=== PATIENT | female | born 1950 | race Caucasian/White ===

== ENCOUNTER 2021-08-26 18:01 | Emergency (ER) | payer OTHER, MEDICARE ==
[2021-08-26 20:04] LABS: BASOPHIL 0.9 % (0-2); EOSINOPHIL 1.7 % (0-7); HCT 37.3 % (37.0-47.0); HGB 12.4 g/dl (12.5-16.0); LYMPHOCYTE 17.4 % (15-48); MCH 33.8 pg (25.0-31.0); MCHC 33.2 g/dL (32.0-36.0); MCV 101.6 fL (78.0-100.0); MONOCYTE 10.4 % (0-12); NEUTROPHIL 69.3 % (41-80); NRBC 0; PLT 146 K/uL (150-400); RBC 3.67 M/uL (4.20-5.40); RDW 13.3 % (11.5-14.0); WBC 6.9 K/uL (4.0-10.5)
[2021-08-26 20:20] LABS: BUN/CREAT RATIO (CALC) 21.1 RATIO; CREATININE 1.14 mg/dL (0.51-0.95); POTASSIUM 3.6 mmol/L (3.5-5.1)
[2021-08-26] MEDS ORDERED: NORCO 5-325 TA1 EACH PO (21:16)
== END 2021-08-26 22:45 | disposition home or self-care (01) ==
LOC: FER 18:01
PROVIDERS: Internal Medicine
DX: S50.812A Abrasion of left forearm, initial encounter (principal); M25.571 Pain in right ankle and joints of right foot; N18.31 Chronic kidney disease, stage 3a; I50.9 Heart failure, unspecified; D53.9 Nutritional anemia, unspecified; Z91.041 Radiographic dye allergy status; Z79.01 Long term (current) use of anticoagulants; Z23 Encounter for immunization; Z79.899 Other long term (current) drug therapy; V49.50XA Passenger injured in collision with unspecified motor vehicles in traffic accident, initial encounter
CPT/HCPCS: 36415; 70450; 71045; 71250; 72125; 73090; 73610; 80048; 85025; 90471; 90715; J1170